=== PATIENT | male | born 1940 | race Caucasian/White ===

== ENCOUNTER 2020-09-21 11:43 | Day surgery (SDC) | payer OTHER ==
[~2020-09-21] VITALS: Ht 175.3 cm; Wt 80.6 kg
[~2020-09-21 11:43] MED LIST: ALBU90I INH; Aspirin EC81 MG PO; ELLURA200 MG PO; GABA300 PO; GLUCOSAMINE-CH1 EAC7 PO; Garlic500 MG PO; HYDACE5 PO; LISI5 PO; MULTIPLE VITAM1 EACH PO; MULVITMIND; OMEGA-3 FISH O1 EAC5 PO; ONDA4 PO; OXYACE5T PO; Ranitidine HCl150 M1 PO; Saw Palmetto160 MG PO; TAMS.4ER PO; ZESTRIL40 M2 PO
== END 2020-09-21 14:50 | disposition home or self-care (01) ==
LOC: ORSCSDS 11:43
PROVIDERS: Surgery
PROC: 0DBM8ZX Excision of Descending Colon, Via Natural or Artificial Opening Endoscopic, Diagnostic (ICD-10-PCS; principal; 2020-09-21 14:45)
DX: Z12.11 Encounter for screening for malignant neoplasm of colon (principal); K63.5 Polyp of colon; K57.30 Diverticulosis of large intestine without perforation or abscess without bleeding; Z86.010 Personal history of colon polyps; I10 Essential (primary) hypertension; E78.00 Pure hypercholesterolemia, unspecified; Z79.82 Long term (current) use of aspirin; Z79.899 Other long term (current) drug therapy; Z87.891 Personal history of nicotine dependence
CPT/HCPCS: 88305; J2704; J7120

== ENCOUNTER 2020-10-10 19:13 | Emergency (ER) | payer OTHER ==
[~2020-10-10] VITALS: Ht 172.7 cm; Wt 80.3 kg
[2020-10-10 20:11] LABS: BASOPHILS ABSOLUTE AUTO 0.09 K/mm3 (0.00-0.23); BASOPHILS PERCENT AUTO 1 % (0-2); EOSINOPHILS ABSOLUTE AUTO 0.52 K/mm3 (0.00-0.68); EOSINOPHILS PERCENT AUTO 7 % (0-6); Hematocrit 45.1 % (37.0-53.0); Hemoglobin 14.9 g/dL (13.5-17.5); IMMATURE GRAN ABSOLUTE AUTO 0.01 K/mm3 (0.00-0.10); IMMATURE GRAN PERCENT AUTO 0 % (0-1); LYMPHOCYTES ABSOLUTE AUTO 2.64 K/mm3 (0.84-5.20); LYMPHOCYTES PERCENT AUTO 36 % (21-46); MONOCYTES ABSOLUTE AUTO 0.53 K/mm3 (0.16-1.47); MONOCYTES PERCENT AUTO 7 % (4-13); Mean Corpuscular HGB 32.1 pg (26.0-34.0); Mean Corpuscular Volume 97 fL (80-100); Mean Platelet Volume 8.8 fL (9.1-12.4); NEUTROPHILS ABSOLUTE AUTO 3.63 K/mm3 (1.96-9.15); NEUTROPHILS PERCENT AUTO 49 % (41-73); Platelet Count 270 K/mm3 (150-400); RDW Coefficient Variation 13.3 % (11.7-14.2); RDW Standard Deviation 48.2 fL (35.1-46.3); Red Blood Cell Count 4.64 M/mm3 (4.30-5.90); White Blood Cell Count 7.42 K/mm3 (4.00-11.30)
[2020-10-10 20:34] LABS: Troponin I <0.015 ng/mL (0.000-0.040)
[2020-10-10 20:35] LABS: Alanine Aminotransfer (ALT/SGP 33 U/L (12-78); Albumin, Blood 3.6 g/dL (3.4-5.0); Alk Phos 52 U/L (50-136); Anion Gap 5 mmol/L (6-16); Aspartate Aminotrans (AST/SGOT 15 U/L (12-37); Bilirubin, Total 0.3 mg/dL (0.1-1.0); Blood Urea Nitrogen 25 mg/dL (8-24); Bun/Creatinine Ratio 20.7 (12.0-20.0); CO2, Blood 23 mmol/L (21-32); Calcium, Blood 9.2 mg/dL (8.5-10.1); Chloride, Blood 112 mmol/L (98-108); Creatinine, Blood 1.21 mg/dL (0.60-1.20); Globulin, Blood 3.6 g/dL (2.2-4.0); Glomerular Filtration Rate >60 (60-); Glucose, Blood 110 mg/dL (70-99); Potassium, Blood 4.4 mmol/L (3.5-5.5); Sodium, Blood 140 mmol/L (136-145); Total Protein, Blood 7.2 g/dL (6.4-8.2)
[2020-10-10] MEDS ORDERED: TAMS.4ER PO (23:37)
== END 2020-10-11 01:41 | disposition home or self-care (01) ==
LOC: ER 19:13
PROVIDERS: Emergency Medicine
DX: R00.2 Palpitations (principal); I10 Essential (primary) hypertension; Z79.82 Long term (current) use of aspirin; Z79.899 Other long term (current) drug therapy; Z87.442 Personal history of urinary calculi
CPT/HCPCS: 36415; 71046; 80053; 83880; 84484; 85025; 93005; 93010; 99285-25

== ENCOUNTER → 2022-03-06 | Outpatient (CLI) | payer OTHER ==
[2022-03-06 15:48] LABS: Anion Gap 5 mmol/L (6-16); Blood Urea Nitrogen 26 mg/dL (8-24); Bun/Creatinine Ratio 24.3 (12.0-20.0); CO2, Blood 24 mmol/L (21-32); Calcium, Blood 8.8 mg/dL (8.5-10.1); Chloride, Blood 111 mmol/L (98-108); Creatinine, Blood 1.07 mg/dL (0.60-1.20); Glomerular Filtration Rate 71 (60-); Glucose, Blood 95 mg/dL (70-99); Sodium, Blood 140 mmol/L (136-145)
== END | disposition home or self-care (01) ==
LOC: LAB SHORT 10:25 → LAB 10:25
PROVIDERS: Hospitalist
DX: Z12.5 Encounter for screening for malignant neoplasm of prostate (principal); N18.31 Chronic kidney disease, stage 3a
CPT/HCPCS: 80048; G0103

== ENCOUNTER → 2023-03-17 | Outpatient (CLI) | payer OTHER ==
[~2023-03-17] MED LIST changes: +AMLO5 PO; +BENZ100A PO; +ELIQUIS5 M2 PO; +FINA5 PO
[2023-03-17 15:54] LABS: Bun/Creatinine Ratio 24.2 (12.0-20.0); Calcium, Blood 8.8 mg/dL (8.5-10.1); Creatinine, Blood 1.2 mg/dL (0.60-1.20); Potassium, Blood 4.6 mmol/L (3.5-5.5)
== END | disposition home or self-care (01) ==
LOC: LAB 09:57 → LAB SHORT 09:57
PROVIDERS: Hospitalist
DX: R10.9 Unspecified abdominal pain (principal)
CPT/HCPCS: 80048

== ENCOUNTER → 2023-10-01 | Outpatient (CLI) | payer OTHER ==
[2023-10-01 19:39] LABS: Bun/Creatinine Ratio 21.3 (12.0-20.0); Creatinine, Blood 1.08 mg/dL (0.60-1.20); Potassium, Blood 4.5 mmol/L (3.5-5.5)
== END | disposition home or self-care (01) ==
LOC: LAB 18:25 → LAB SHORT 18:25
PROVIDERS: Hospitalist
DX: I12.9 Hypertensive chronic kidney disease with stage 1 through stage 4 chronic kidney disease, or unspecified chronic kidney disease (principal); N18.9 Chronic kidney disease, unspecified
CPT/HCPCS: 80048; 83970

== ENCOUNTER 2024-02-18 05:55 | Day surgery (SDC) | payer OTHER ==
[2024-02-18] VITALS (15 sets, daily range): BP systolic 78–124; BP diastolic 48–78
[~2024-02-18] VITALS: Ht 175.3 cm; Wt 81.0 kg
[~2024-02-18 05:55] MED LIST changes: +HYDCHL25 PO
[2024-02-18] MEDS ORDERED: CeFAZolin Sodium 2,000 MG in NS 100 ML IV SCH (06:15)
[2024-02-18] MEDS ORDERED: Lactated Ringer's 1,000 ML IV SCH (06:15)
--- NOTE | 2024-02-18 06:59 | NUR ---
PT HAS A ONE INCH ABRASION/SCRATCH ON L SIDE OF GROIN/YARED AREA. IT IS RED, NOT RAISED, NOT OPEN. IT WAS PRESENT BEFORE HAIR REMOVAL.
[2024-02-18] MEDS ORDERED: Bupivacaine 0.5% HCl 5 MG/ML 30MLVIAL ONE (07:01)
[2024-02-18] MEDS ORDERED: HYDROcodone 5-APAP 325 TAB PO PRN (09:55)
[2024-02-18] MEDS ORDERED: Lactated Ringer's 1,000 ML IV ONE (10:09)
--- NOTE | 2024-02-18 10:38 | NUR ---
PT TO DAY SURGERY STEP DOWN FROM PACU; BEDSIDE REPORT RECEIEVED. PT IS AWAKE, ALERT AND ORIENTED; ABLE TO MOVE SELF IN BED. VSS. PT HAS 3 ABDOMINAL INCISIONS THAT ARE C/D/I AND CLOSED WITH EXOFIN. PT HAS NO COMPLAINTS AT THIS TIME.
--- NOTE | 2024-02-18 10:47 | NUR ---
PT TOLERATING PO FLUIDS WELL
--- NOTE | 2024-02-18 10:55 | NUR ---
ICE PACK TO ABD. INCISIONS REMAIN C/D/I
--- NOTE | 2024-02-18 11:04 | NUR ---
TOLERATING CRACKERS WELL. AT BEDSIDE
--- NOTE | 2024-02-18 11:11 | NUR ---
Discharge instructions reviewed with patient. Patient verbalizes understanding. Copy given to patient to take home. Patient States Post-Procedure ride home has been arranged.
--- NOTE | 2024-02-18 11:44 | NUR ---
Patient up to Ambulate independently. Gait steady. Discharged via wheelchair to private car for ride home.
== END 2024-02-18 11:45 | disposition home or self-care (01) ==
LOC: ORSCMMR 05:55 → ORD 07:30 → ORSCMMR 07:30
PROVIDERS: Surgery
PROC: 0YUA4JZ Supplement Bilateral Inguinal Region with Synthetic Substitute, Percutaneous Endoscopic Approach (ICD-10-PCS; principal; 2024-02-18 07:30)
PROC: 8E0W4CZ Robotic Assisted Procedure of Trunk Region, Percutaneous Endoscopic Approach (ICD-10-PCS; principal; 2024-02-18 07:30)
DX: K40.20 Bilateral inguinal hernia, without obstruction or gangrene, not specified as recurrent (principal); Z79.899 Other long term (current) drug therapy
CPT/HCPCS: A9270; C1781; J0690; J7120

== ENCOUNTER → 2024-12-16 | Outpatient (CLI) | payer OTHER ==
[2024-12-16 19:18] LABS: Bun/Creatinine Ratio 16.5 (12.0-20.0); Calcium, Blood 8.8 mg/dL (8.5-10.1); Creatinine, Blood 1.21 mg/dL (0.60-1.20); Potassium, Blood 4.7 mmol/L (3.5-5.5)
== END ==
LOC: LAB 17:43 → LAB SHORT 17:43
PROVIDERS: Hospitalist
DX: I12.9 Hypertensive chronic kidney disease with stage 1 through stage 4 chronic kidney disease, or unspecified chronic kidney disease (principal)
CPT/HCPCS: 80048